=== PATIENT | male | born 2000 | race Caucasian/White ===

== ENCOUNTER 2022-07-27 09:49 | Emergency (ER) | payer BC ==
--- OUTSIDE RECORDS SUMMARY | 2022-07-27 09:52 | XMS REPORT | Continuity of Care Document ---
:2000 Author Organization [facility] t Address Formerly [facility] 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 [facility] Allergies, Adverse Reactions, Alerts This patient has no known allergies or adverse reactions. Social History Smoking Status Start Date Stop Date Source Social History [facility] Medications Ordered Filled Start Stop Current Ordering Indication Dosage Frequency Signature Comments Components Source Medication Medication Date Date Medication? Clinician (SIG) Name Name lisdexamfet 2018-08 Yes 50 mg = 1 M emoria amine 2-02 cap, PO, l dimesylate 17:13: QAM, # 30 He rmann 50 MG Oral 00 cap, 0 Capsule Refill(s), [Vyvanse] Pharmacy: [facility] [address] lisdexamfet Yes 50 mg = 1 M emoria amine 9-20 cap, PO, l dimesylate 16:03: QAM, # 30 He rmann 50 MG Oral 00 cap, 0 Capsule Refill(s), [Vyvanse] Pharmacy: [facility] [address] lisdexamfet Yes 50 mg = 1 M emoria amine 9-09 cap, PO, l dimesylate 15:15: QAM, # 30 He rmann 50 MG Oral 36 cap, 0 Capsule Refill(s), [Vyvanse] given to patient lisdexamfet Yes 50 mg = 1 M emoria amine 3-19 cap, PO, l dimesylate 14:34: QAM, # 30 He rmann 50 MG Oral 31 cap, 0 Capsule Refill(s), [Vyvanse] given to patient lisdexamfet Yes 50 mg = 1 M emoria amine 5-14 cap, PO, l dimesylate 16:36: QAM, # 30 He rmann 50 MG Oral 57 cap, 0 Capsule Refill(s), [Vyvanse] given to patient Immunizations Ordered Immunization Filled Immunization Date Status Commen ts Source Name Name hepatitis A pediatric 2013-04-22 Completed Mem orial vaccine<sup>1</sup> 05:00:00 Yenny nn varicella virus 2013-04-22 Completed [facility] vaccine<sup>2</sup> 05:00:00 Yenny nn meningococcal 2013-04-22 Completed [facility] conjugate 05:00:00 [place] vaccine<sup>4</sup> diphtheria/pertussis, 2013-04-22 Completed Mem orial acel/tetanus 05:00:00 [place] adult<sup>5</sup> diphtheria/pertussis, 2013-04-22 Completed Mem orial acel/tetanus 05:00:00 [place] adult<sup>2</sup> meningococcal 2013-04-22 Completed [facility] conjugate 05:00:00 [place] vaccine<sup>3</sup> varicella virus 2013-04-22 Completed [facility] vaccine<sup>4</sup> 05:00:00 Yenny nn Hx hepatitis A 2006-03-06 Completed [facility] vaccine<sup>6</sup> 05:00:00 Yenny nn measles/mumps/rubella 2005-03-07 Completed Mem orial virus 05:00:00 [place] vaccine<sup>7</sup> Hx poliovirus 2005-03-07 Completed [facility] vaccine-unspecified<s 05:00:00 Her liang up>9</sup> diphtheria/pertussis, 2005-03-07 Completed Mem orial acel/tetanus 05:00:00 [place] ped<sup>13</sup> Hx poliovirus 2005-03-07 Completed [facility] vaccine-unspecified<s 05:00:00 Her liang up>7</sup> diphtheria/pertussis, 2005-03-07 Completed Mem orial acel/tetanus 05:00:00 L[place] ped<sup>11</sup> measles/mumps/rubella 2005-03-07 Completed Mem orial virus 05:00:00 [place] vaccine<sup>16</sup> varicella virus 2002-10-05 Completed [facility] vaccine<sup>3</sup> 06:00:00 Yenny nn varicella virus 2002-10-05 Completed [facility] vaccine<sup>5</sup> 06:00:00 Yenny nn Hx poliovirus 2002-05-04 Completed [facility] vaccine-unspecified<s 05:00:00 Her liang up>8</sup> diphtheria/pertussis, 2002-05-04 Completed Mem orial acel/tetanus 05:00:00 [place] ped<sup>12</sup> Hx hepatitis B 2002-05-04 Completed [facility] vaccine<sup>18</sup> 05:00:00 Herm mary Hx haemophilus b 2002-05-04 Completed [facility] vaccine<sup>21</sup> 05:00:00 Herm mary Hx haemophilus b 2002-05-04 Completed [facility] vaccine<sup>18</sup> 05:00:00 Herm mary Hx poliovirus 2002-05-04 Completed [facility] vaccine-unspecified<s 05:00:00 Her liang up>10</sup> diphtheria/pertussis, 2002-05-04 Completed Mem orial acel/tetanus 05:00:00 [place] ped<sup>14</sup> Hx hepatitis B 2002-05-04 Completed [facility] vaccine<sup>22</sup> 05:00:00 Herm mary measles/mumps/rubella 2001-12-03 Completed Mem orial virus 05:00:00 [place] vaccine<sup>8</sup> measles/mumps/rubella 2001-12-03 Completed Mem orial virus 05:00:00 [place] vaccine<sup>17</sup> Hx haemophilus b 2001-05-26 Completed [facility] vaccine<sup>19</sup> 05:00:00 Herm mary Hx pneumococcal 2001-05-26 Completed [facility] vaccine<sup>25</sup> 05:00:00 Herm mary diphtheria/pertussis, 2001-05-26 Completed Mem orial acel/tetanus 05:00:00 [place] ped<sup>15</sup> diphtheria/pertussis, 2001-05-26 Completed Mem orial acel/tetanus 05:00:00 Lalo ped<sup>13</sup> Hx haemophilus b 2001-05-26 Completed [facility] vaccine<sup>22</sup> 05:00:00 Herm mary Hx haemophilus b 2001-03-31 Completed [facility] vaccine<sup>20</sup> 05:00:00 Herm mary Hx poliovirus 2001-03-31 Completed [facility] vaccine-unspecified<s 05:00:00 Her liang up>11</sup> Hx pneumococcal 2001-03-31 Completed [facility] vaccine<sup>26</sup> 05:00:00 Herm mary Hx poliovirus 2001-03-31 Completed [facility] vaccine-unspecified<s 05:00:00 Her liang up>9</sup> Hx haemophilus b 2001-03-31 Completed [facility] vaccine<sup>23</sup> 05:00:00 Herm mary diphtheria/pertussis, 2001-02-28 Completed Mem orial acel/tetanus 05:00:00 [place] ped<sup>16</sup> diphtheria/pertussis, 2001-02-28 Completed Mem orial acel/tetanus 05:00:00 [place] ped<sup>14</sup> Hx haemophilus b 2001-02-03 Completed [facility] vaccine<sup>21</sup> 05:00:00 Herm mary Hx poliovirus 2001-02-03 Completed [facility] vaccine-unspecified<s 05:00:00 Her liang up>12</sup> Hx pneumococcal 2001-02-03 Completed [facility] vaccine<sup>27</sup> 05:00:00 Herm mary diphtheria/pertussis, 2001-02-03 Completed Mem orial acel/tetanus 05:00:00 [place] ped<sup>17</sup> Hx hepatitis B 2001-02-03 Completed [facility] vaccine<sup>23</sup> 05:00:00 Herm mary Hx poliovirus 2001-02-03 Completed [facility] vaccine-unspecified<s 05:00:00 Her liang up>10</sup> diphtheria/pertussis, 2001-02-03 Completed Mem orial acel/tetanus 05:00:00 [place] ped<sup>15</sup> Hx hepatitis B 2001-02-03 Completed [facility] vaccine<sup>19</sup> 05:00:00 Herm mary Hx haemophilus b 2001-02-03 Completed [facility] vaccine<sup>24</sup> 05:00:00 Herm mary Hx hepatitis B 2000 Completed [facility] vaccine<sup>24</sup> 06:00:00 Herm mary Hx hepatitis B 2000 Completed [facility] vaccine<sup>20</sup> 06:00:00 Herm mary Vital Signs Vital Name Observation Time Observation Value Comments Source Systolic (mm Hg) 2019-07-06 15:40:00 Mckinley rial Lalo Diastolic (mm Hg) 2019-07-06 15:40:00 Mem orial [place] Heart Rate 2019-07-06 15:40:00 [facility] [place] Respitory Rate 2019-07-06 15:40:00 Floresitaori al [place] Weight 2019-07-06 15:40:00 [facility] [place] Systolic (mm Hg) 2019-05-03 14:49:00 Mckinley rial [place] Diastolic (mm Hg) 2019-05-03 14:49:00 Mem orial [place] Heart Rate 2019-05-03 14:49:00 [facility] [place] Height 2019-05-03 14:49:00 179.71 cm [facility] [place] Weight 2019-05-03 14:49:00 [facility] [place] BMI Calculated 2019-05-03 14:49:00 Floresitaori al [place] Weight 2019-01-05 12:53:00 [facility] [place] Heart Rate 2019-01-05 12:53:00 [facility] [place] Systolic (mm Hg) 2019-01-05 12:53:00 Mckinleyalma Garciaann Diastolic (mm Hg) 2019-01-05 12:53:00 Mem orial [place] Weight 2018-01-05 16:22:00 Boni May BMI Calculated 2018-01-05 16:22:00 Aicha Herrera Height 2018-01-05 16:22:00 177.8 cm Boni May Systolic (mm Hg) 2018-01-05 16:22:00 Mckinley Garciaann Diastolic (mm Hg) 2018-01-05 16:22:00 Mem orial [place] Procedures This patient has no known procedures. Encounters Start End Encounter Admission Attending Care Care Encounter Source Date/Time Date/Time Type Type Clinicians Facility Department ID 2021-09-19 2021-09-19 Outpatient [facility] [id number] 04:31:00 04:31:00 [id number] [facility] 2021-04-16 2021-04-16 Outpatient [facility] [address] 04:17:00 04:17:00 HN [id number] [facility] 2019-07-26 2019-07-28 Phone nullFlavo [facility] [id number] Memoria 16:01:19 05:59:59 Message r Pediatrics 03 aviva May 2019-07-26 2019-07-27 Outpatient MG MG [id number] 10:01:19 23:59:59 03 2019-07-06 2019-07-07 [place] [id number] Mem[facility] 15:45:00 05:59:59 r Radiology 10 aviva Garciaann 2019-07-06 2019-07-07 [place] [id number] Memoria 15:45:00 05:59:59 r Pediatrics 09 aviva Garciaann 2019-07-06 2019-07-06 [facility] [id number] 09:45:00 23:59:59 NURSE [facility] Angela MISHRA 2019-07-06 2019-07-06 [facility] Ces[facility] [id number] 09:45:00 23:59:59 Marvin Edmonds 09 2019-07-06 2019-07-06 Outpatient [facility]IE [facility] [id number] Memoria 09:45:00 09:45:00 10 aviva May 2019-07-06 2019-07-06 Outpatient [facility]IE [facility] [id number] Memoria 09:45:00 09:45:00 09 aviva [place] 2019-05-14 2019-05-16 Phone nullFlavo MG [id number] Memoria 15:42:22 04:59:59 Message r Pediatrics 02 aviva Nelson [place] 2019-05-14 2019-05-15 Outpatient [facility] MG [id number] 10:42:22 23:59:59 02 2019-05-03 2019-05-04 Outpatient nullFlavo [facility] [id number] Memoria 16:15:00 04:59:59 r Pediatrics 08 aviva Nelson [place] 2019-05-03 2019-05-03 Outpatient Cesario, MG MG [id number] 11:15:00 23:59:59 Marvin Edmonds 2019-05-03 2019-05-03 Outpatient MHIE MHIE [id number] Memoria 11:15:00 11:15:00 08 aviva [place]alo 2019-02-12 2019-02-12 [place] [id number] [facility] 16:15:00 16:15:00 Pre-Reg r Pediatrics 05 aviva Nelson [place] 2019-02-12 2019-02-12 Outpatient MHIE [facility] [id number] Memoria 11:15:00 11:15:00 05 aviva [place] 2019-02-12 2019-02-12 [facility] [id number] 11:15:00 11:15:00 Marvin Mary 2019-01-05 2019-01-06 [place] [id number] Memoria 13:15:00 04:59:59 r Radiology 07 aviva Nelson [place] 2019-01-05 2019-01-06 Outpatient nullFlavo [facility] [id number] Memoria 13:00:00 04:59:59 r Pediatrics 06 aviva Nelson [place] 2019-01-05 2019-01-05 Outpatient VISIT, MG MG [id number] 08:15:00 23:59:[address] 07 TAD 2019-01-05 2019-01-05 Outpatient Cesario, [facility] [id number] 08:00:00 23:59:59 Marvin Edmonds 2019-01-05 2019-01-05 Outpatient MHIE MHIE [id number] Memoria 08:15:00 08:15:00 07 aviva Lalo 2019-01-05 2019-01-05 Outpatient MHIE [facility]IE [id number] Memoria 08:00:00 08:00:00 06 aviva May 2018-11-10 2018-11-12 Phone nullFlavo [facility] [id number] Memoria 14:23:00 04:59:59 Message r Pediatrics 01 aviva Nelson [place] 2018-11-10 2018-11-11 Outpatient [facility] [id number] 09:23:00 23:59:59 01 2018-01-05 2018-01-06 Outpatient nullFlavo [facility] [id number] Memoria 16:15:00 04:59:59 r Pediatrics 04 aviva Nelson [place] 2018-01-05 2018-01-05 Outpatient [facility]ISCO [facility] [id number] 11:15:00 23:59:59 Marvin Edmonds 2018-01-05 2018-01-05 Outpatient MHIE MHIE [id number] Memoria 11:15:00 11:15:00 04 aviva May 2017-12-31 2017-12-31 Ambulatory nullFlavo [facility] [id number] Memoria 16:00:00 16:00:00 Pre-Reg r Pediatrics 03 aviva Nelson [place] 2017-12-31 2017-12-31 Outpatient MHIE MHIE [id number] Memoria 11:00:00 11:00:00 03 aviva May 2017-12-31 2017-12-31 Outpatient Kevintman, [facility] [id number] 11:00:00 11:00:00 Marvin Edmonds 2017-12-31 2017-12-31 Outpatient Nortman, [facility] [id number] 11:00:00 11:00:00 Marvin Edmonds 2016 2016 Outpatient MHIE MHIE [id number] Memoria 11:30:00 11:30:00 02 aviva May Results This patient has no known results.
--- NOTE | 2022-07-27 10:49 | RAD REPORT ---
EXAM DESCRIPTION: Fabi Single View07/27/2022 10:30 am CLINICAL HISTORY: Chest pain COMPARISON: none FINDINGS: The lungs appear clear of acute infiltrate. The heart is normal size IMPRESSION: No acute abnormalities displayed
[2022-07-27 11:15] LABS: SARS-COV-2 RT PCR NEGATIVE (NEGATIVE)
--- NOTE | 2022-07-27 11:44 | ER ---
Nurse's Notes [facility] Name: Avery Alvarenga Age: 21 yrs Sex: Male : 2000 Arrival Date: 07/27/2022 Time: 09:52 Bed DIS1 Private MD: Diagnosis: Influenza Presentation: 07/27 10:05 Chief complaint: Patient states: Cough, congestion, runny nose, body aches x1 days. iw Coronavirus screen: Vaccine status: Patient reports being unvaccinated. Client indicates they have traveled out of the [place] in the last 14 days. Client traveled to: [place], [place], [facility]. Ebola Screen: Patient negative for fever greater than or equal to 101.5 degrees Fahrenheit, and additional compatible Ebola Virus Disease symptoms Patient denies exposure to infectious person. Patient denies travel to an Ebola-affected area in the 21 days before illness onset. Initial Sepsis Screen: Does the patient meet any 2 criteria? No. Patient's initial sepsis screen is negative. Does the patient have a suspected source of infection? No. Patient's initial sepsis screen is negative. Risk Assessment: Do you want to hurt yourself or someone else? Patient reports no desire to harm self or others. Onset of symptoms was July 26, 2022 at 17:00. 10:05 Method Of Arrival: Ambulatory iw 10:05 Acuity: MANSOOR 4 iw Triage Assessment: 10:08 General: Appears in no apparent distress. Behavior is calm, cooperative. Pain: iw Complains of pain in head and chest Pain does not radiate. Pain currently is 5 out of 10 on a pain scale. Quality of pain is described as pressure. Cardiovascular: Reports chest pain. Historical: - Allergies: 10:08 No Known Allergies; iw - Home Meds: 10:08 None [Active]; iw - PMHx: 10:08 None; iw - PSHx: 10:08 None; iw - Immunization history:: Adult Immunizations up to date, Client reports having NOT received the Covid vaccine. Last tetanus immunization: up to date. - Social history:: Smoking status: Patient/guardian denies using tobacco, Stopped _ months ago .5. Vital Signs: 10:05 BP 132 / 88; Pulse 98; Resp 20; Temp 98.6; Pulse Ox 100% ; Weight 93.89 kg; Height 6 iw ft. 1 in. (185.42 cm); Pain 5/10; 10:05 Body Mass Index 27.31 (93.89 kg, 185.42 cm) iw ED Course: 09:52 Patient arrived in ED. mr 09:53 Alcon Serrano PA is PHCP. [facility] 09:53 Akash Roberts MD is Attending Physician. jmm 10:08 Triage completed. iw 10:08 Arm band placed on right wrist. iw 10:10 COVID-19/FLU A+B Sent. iw 10:32 Chest Single View XRAY In Process Unspecified. EDMS 12:24 Ashlee Keating, RN is Primary Nurse. iw Administered Medications: 12:24 Drug: Zofran (Ondansetron) 4 mg Route: PO; iw Outcome: 11:43 Discharge ordered by . m 12:33 Patient left the ED. iw Signatures: Dispatcher [employer] EDMS Alcon Serrano PA PA jmm Rivera, Mary mr Ashlee Keating, RN RN iw
--- NOTE | 2022-07-27 11:44 | EDPHYS ---
Physician Documentation [facility] Name: Avery Alvarenga Age: 21 yrs Sex: Male : 2000 Arrival Date: 07/27/2022 Time: 09:52 Bed DIS1 Private MD: ED Physician Akash Roberts HPI: 07/27 09:54 This 21 yrs old Male presents to ER via Ambulatory with complaints of body aches, Chest jmm Pressure. 09:54 Onset: The symptoms/episode began/occurred gradually. Associated signs and symptoms: jmm Pertinent positives: congestion, cough. Modifying factors: The patient symptoms are alleviated by nothing, the patient symptoms are aggravated by nothing. This is a 21 year old male with no chronic medical conditions that presents to the ED with complaints of cough, congestion, body aches beginning last night. . Historical: - Allergies: 10:08 No Known Allergies; iw - Home Meds: 10:08 None [Active]; iw - PMHx: 10:08 None; iw - PSHx: 10:08 None; iw - Immunization history:: Adult Immunizations up to date, Client reports having NOT received the Covid vaccine. Last tetanus immunization: up to date. - Social history:: Smoking status: Patient/guardian denies using tobacco, Stopped _ months ago .5. ROS: 09:54 Constitutional: Positive for body aches, chills. jmm 09:54 ENT: Positive for sinus congestion. 09:54 Respiratory: Positive for cough. 09:54 All other systems are negative. Exam: 09:54 Constitutional: This is a well developed, well nourished patient who is awake, alert, jmm and in no acute distress. Head/Face: atraumatic. Eyes: EOMI, no conjunctival erythema appreciated ENT: Moist Mucus Membranes Neck: Trachea midline, Supple Chest/axilla: Normal chest wall appearance and motion. Cardiovascular: Regular rate and rhythm. No edema appreciated Respiratory: Normal respirations, no respiratory distress appreciated Abdomen/GI: Non distended Back: Normal ROM Skin: General appearance color normal MS/ Extremity: Moves all extremities, no obvious deformities appreciated, no edema noted to the lower extremities Neuro: Awake and alert Psych: Behavior is normal, Mood is normal, Patient is cooperative and pleasant Vital Signs: 10:05 BP 132 / 88; Pulse 98; Resp 20; Temp 98.6; Pulse Ox 100% ; Weight 93.89 kg; Height 6 iw ft. 1 in. (185.42 cm); Pain 5/10; 10:05 Body Mass Index 27.31 (93.89 kg, 185.42 cm) MDM: 10:04 Patient medically screened. [facility] 11:42 Data reviewed: vital signs, nurses notes. Counseling: I had a detailed discussion with [facility] the patient and/or guardian regarding: the historical points, exam findings, and any diagnostic results supporting the discharge/admit diagnosis, the need for outpatient follow up, to return to the emergency department if symptoms worsen or persist or if there are any questions or concerns that arise at home. 07/27 09:53 Order name: COVID-19/FLU A+B; Complete Time: 11:42 [facility] 07/27 09:53 Order name: Chest Single View XRAY; Complete Time: 10:50 [facility] Administered Medications: 12:24 Drug: Zofran (Ondansetron) 4 mg Route: PO; Disposition: 07/28 08:06 Co-signature as Attending Physician, Akash Roberts MD I agree with the assessment and srikanth plan of care. Disposition Summary: 07/27/22 11:43 Discharge Ordered Location: Home [facility] Condition: Stable [facility] Diagnosis - Influenza [facility] Followup: [facility] - With: Private Physician - When: 2 - 3 days - Reason: Recheck today's complaints, Continuance of care, Re-evaluation by your physician Discharge Instructions: - Discharge Summary Sheet [facility] - Influenza, Adult [facility] Forms: - Medication Reconciliation Form [facility] - Thank You Letter [facility] - Antibiotic Education [facility] - Prescription Opioid Use [facility] - Work release form Prescriptions: - ondansetron 4 mg Oral tablet,disintegrating - place 1 tablet by TRANSLINGUAL route every 4-6 hours; 20 tablet; Refills: 0, [facility] Product Selection Permitted Signatures: Dispatcher [employer] Akash Cochran MD MD cha Mickail, Joel, PA PA jmm Williams, Irene, RN RN iw
[2022-07-27] MEDS ORDERED: ONDANSETRON 4 MG (ODT) TAB ONE (12:03)
[2022-07-27 12:37] VITALS: BP 132/88; TEMP 98.6; O2SAT 100
== END 2022-07-27 12:33 | disposition home or self-care (01) ==
LOC: ER 09:49
DX: J11.1 Influenza due to unidentified influenza virus with other respiratory manifestations (principal); Z20.822 Contact with and (suspected) exposure to COVID-19
CPT/HCPCS: 0240U; 71045; 99283; Q0162

== ENCOUNTER 2022-11-09 23:37 | Emergency (ER) | payer BC ==
--- OUTSIDE RECORDS SUMMARY | 2022-11-09 23:50 | XMS REPORT | Continuity of Care Document ---
:2000 Author Organization [facility] t Address [address] [place] [address] Care Team Providers Name Role Phone Tomek_Dell Attending Clinician Unavailable Shield Attending Clinician Unavailable TACHO Attending Clinician Unavailable VISIT, NURSE [facility] XRAY Attending Clinician Unavailable Marvin Nassar Attending Clinician Tomek_Dell Admitting Clinician Unavailable Shield Admitting Clinician Unavailable TACHO Admitting Clinician Unavailable Payers Payer Name Policy Type Policy Number Effective Date Expiration Date S di [facility]: 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 [facility] Allergies, Adverse Reactions, Alerts Allergy Allergy Status Severity Reaction(s) Onset Inactive Treating Comm ents Source Name Type Date Date Clinician No Known No Known Active Mem[facility] a Medicati Medicati l on on [place] Allergie Allergxavi s s Social History Smoking Status Start Date Stop Date Source Social History [facility] Medications Ordered Filled Start Stop Current Ordering Indication Dosage Frequency Signature Comments Components Source Medication Medication Date Date Medication? Clinician (SIG) Name Name huey 2018-08 Yes 50 mg = 1 M emoria amine 2-02 cap, PO, l dimesylate 17:13: QAM, # 30 He rmann 50 MG Oral 00 cap, 0 Capsule Refill(s), [Vyvanse] Pharmacy: [facility] lisdexamfet 2018-08 Yes 50 mg = 1 M emoria amine 2-02 cap, PO, l dimesylate 17:13: QAM, # 30 He rmann 50 MG Oral 00 cap, 0 Capsule Refill(s), [Vyvanse] Pharmacy: [facility] lisdexamfet Yes 50 mg = 1 M emoria amine 9-20 cap, PO, l dimesylate 16:03: QAM, # 30 He rmann 50 MG Oral 00 cap, 0 Capsule Refill(s), [Vyvanse] Pharmacy: [facility] lisdexamfet Yes 50 mg = 1 M emoria amine 9-20 cap, PO, l dimesylate 16:03: QAM, # 30 He rmann 50 MG Oral 00 cap, 0 Capsule Refill(s), [Vyvanse] Pharmacy: [facility] lisdexamfet Yes 50 mg [...] Capsule Refill(s), [Vyvanse] given to patient lisdexamfet 0 Yes 50 mg = 1 M emoria amine 3-19 cap, PO, l dimesylate 14:34: QAM, # 30 He rmann 50 MG Oral 31 cap, 0 Capsule Refill(s), [Vyvanse] given to patient lisdexamfet 20180 Yes 50 mg = 1 M emoria amine 5-14 cap, PO, l dimesylate 16:36: QAM, # 30 He rmann 50 MG Oral 57 cap, 0 Capsule Refill(s), [Vyvanse] given to patient lisdexamfet [id number] Yes 50 mg = 1 M emoria amine 5-14 cap, PO, l dimesylate 16:36: QAM, # 30 He rmann 50 MG Oral 57 cap, 0 Capsule Refill(s), [Vyvanse] given to patient fluticasone fluticasone No fluticason [place] propionate propionate e da 50 50 propionate Medical mcg/actuati mcg/actuati 50 G roup on nasal on nasal mcg/actuat spray,suspe spray,suspe ion nasal nsion nsion spray,susp ension levocetiriz levocetiriz No levocetiri [place] ine 5 mg ine 5 mg zine 5 mg da tablet tablet tablet [facility] Vyvanse 50 Vyvanse 50 No 1capsul Q1D Vyvanse 50 [place] mg capsule mg capsule e(s) mg capsule da Take 1 Take 1 Take 1 Medical capsule capsule capsule Group every day every day every day by oral by oral by oral route with route with route with meals for meals for meals for 30 days. 30 days. 30 days. Immunizations Ordered Immunization Filled Immunization Date Status Commen ts Source Name Name hepatitis A 2013-04-22 Completed [facility] pediatric 05:00:00 [place] vaccine<sup>1</sup> varicella virus 2013-04-22 Completed [facility] vaccine<sup>2</sup> 05:00:00 Yenny nn meningococcal 2013-04-22 Completed [facility] conjugate 05:00:00 [place] vaccine<sup>4</sup> diphtheria/pertussis 2013-04-22 Completed [facility] , acel/tetanus 05:00:00 [place] adult<sup>5</sup> diphtheria/pertussis 2013-04-22 Completed [facility] , acel/tetanus 05:00:00 [place] adult<sup>2</sup> meningococcal 2013-04-22 Completed [facility] conjugate 05:00:00 [place] vaccine<sup>3</sup> varicella virus 2013-04-22 Completed [facility] vaccine<sup>4</sup> 05:00:00 Yenny nn hepatitis A 2013-04-22 Completed [facility] pediatric 05:00:00 [place] vaccine<sup>1</sup> varicella virus 2013-04-22 Completed [facility] vaccine<sup>2</sup> 05:00:00 Yenny nn meningococcal 2013-04-22 Completed [facility] conjugate 05:00:00 [place] vaccine<sup>4</sup> diphtheria/pertussis 2013-04-22 Completed [facility] , acel/tetanus 05:00:00 [place] adult<sup>5</sup> diphtheria/pertussis 2013-04-22 Completed [facility] , acel/tetanus 05:00:00 [place] adult<sup>2</sup> meningococcal 2013-04-22 Completed [facility] conjugate 05:00:00 [place] vaccine<sup>3</sup> varicella virus 2013-04-22 Completed [facility] vaccine<sup>4</sup> 05:00:00 Yenny nn meningococcal MCV4P meningococcal MCV4P 2013-04-22 Completed [place] - ML - ML 00:00:00 [facility] Group Hep A, ped/adol, 2 Hep A, ped/adol, 2 2013-04-22 Completed [place] dose - ML dose - ML 00:00:00 [facility] varicella - ML varicella - ML 2013-04-22 Completed [place] 00:00:00 [facility] Tdap - ML Tdap - ML 2013-04-22 Completed [place] 00:00:00 [facility] Hx hepatitis A 2006-03-06 Completed [facility] vaccine<sup>6</sup> 05:00:00 Yenny lag[place] Hx hepatitis A 2006-03-06 Completed [facility] vaccine<sup>6</sup> 05:00:00 Yenny nn Hep A, ped/adol, 2 Hep A, ped/adol, 2 2006-03-06 Completed [place] dose - ML dose - ML 00:00:00 [facility] measles/mumps/rubell 2005-03-07 Completed [facility] a virus 05:00:00 [place] vaccine<sup>7</sup> Hx poliovirus 2005-03-07 Completed [facility] vaccine-unspecified< 05:00:00 Herm mary sup>9</sup> diphtheria/pertussis 2005-03-07 Completed [facility] , acel/tetanus 05:00:00 [place] ped<sup>13</sup> Hx poliovirus 2005-03-07 Completed [facility] vaccine-unspecified< 05:00:00 Herm mary sup>7</sup> diphtheria/pertussis 2005-03-07 Completed [facility] , acel/tetanus 05:00:00 [place] ped<sup>11</sup> measles/mumps/rubell 2005-03-07 Completed [facility] a virus 05:00:00 [place] vaccine<sup>16</sup> measles/mumps/rubell 2005-03-07 Completed [facility] a virus 05:00:00 [place] vaccine<sup>7</sup> Hx poliovirus 2005-03-07 Completed [facility] vaccine-unspecified< 05:00:00 Herm mary sup>9</sup> diphtheria/pertussis 2005-03-07 Completed [facility] , acel/tetanus 05:00:00 [place] ped<sup>13</sup> Hx poliovirus 2005-03-07 Completed [facility] vaccine-unspecified< 05:00:00 Herm mary sup>7</sup> diphtheria/pertussis 2005-03-07 Completed [facility] , acel/tetanus 05:00:00 [place] ped<sup>11</sup> measles/mumps/rubell 2005-03-07 Completed [facility] a virus 05:00:00 [place] vaccine<sup>16</sup> DTaP, unspecified DTaP, unspecified 2005-03-07 Completed [place] formulation - ML formulation - ML 00:00:00 Pa dical Group MMR - ML MMR - ML 2005-03-07 Completed [place] 00:00:00 [facility] Group IPV - ML IPV - ML 2005-03-07 Completed [place] 00:00:00 [facility] Group varicella virus 2002-10-05 Completed [facility] vaccine<sup>3</sup> 06:00:00 Yenny nn varicella virus 2002-10-05 Completed [facility] vaccine<sup>5</sup> 06:00:00 Yenny nn varicella virus 2002-10-05 Completed [facility] vaccine<sup>3</sup> 06:00:00 Yenny nn varicella virus 2002-10-05 Completed [facility] vaccine<sup>5</sup> 06:00:00 Yenny nn varicella - ML varicella - ML 2002-10-05 Completed [place] 00:00:00 [facility] Hx haemophilus b 2002-05-04 Completed [facility] vaccine<sup>18</sup> 05:00:00 Herm mary Hx poliovirus 2002-05-04 Completed [facility] vaccine-unspecified< 05:00:00 Herm mary sup>10</sup> diphtheria/pertussis 2002-05-04 Completed [facility] , acel/tetanus 05:00:00 [place] ped<sup>14</sup> Hx hepatitis B 2002-05-04 Completed [facility] vaccine<sup>22</sup> 05:00:00 Herm mary Hx poliovirus 2002-05-04 Completed [facility] vaccine-unspecified< 05:00:00 Herm mary sup>8</sup> diphtheria/pertussis 2002-05-04 Completed [facility] , acel/tetanus 05:00:00 [place] ped<sup>12</sup> Hx hepatitis B 2002-05-04 Completed [facility] vaccine<sup>18</sup> 05:00:00 Herm mary Hx haemophilus b 2002-05-04 Completed [facility] vaccine<sup>21</sup> 05:00:00 Herm mary Hx haemophilus b 2002-05-04 Completed [facility] vaccine<sup>18</sup> 05:00:00 Herm mary Hx poliovirus 2002-05-04 Completed [facility] vaccine-unspecified< 05:00:00 Herm mary sup>10</sup> diphtheria/pertussis 2002-05-04 Completed [facility] , acel/tetanus 05:00:00 [place] ped<sup>14</sup> Hx hepatitis B 2002-05-04 Completed [facility] vaccine<sup>22</sup> 05:00:00 Herm mary Hx poliovirus 2002-05-04 Completed [facility] vaccine-unspecified< 05:00:00 Herm mary sup>8</sup> diphtheria/pertussis 2002-05-04 Completed [facility] , acel/tetanus 05:00:00 [place] ped<sup>12</sup> Hx hepatitis B 2002-05-04 Completed [facility] vaccine<sup>18</sup> 05:00:00 Herm mary Hx haemophilus b 2002-05-04 Completed [facility] vaccine<sup>21</sup> 05:00:00 Herm mary DTaP, unspecified DTaP, unspecified 2002-05-04 Completed [place] formulation - ML formulation - ML 00:00:00 Me dical Group Hib (PRP-T) - ML Hib (PRP-T) - ML 2002-05-04 Completed [place] 00:00:[facility] Hep B, adolescent or Hep B, adolescent or 2002-05-04 Completed [place] pediatric - ML pediatric - ML 00:00:00 Medica l Group IPV - ML IPV - ML 2002-05-04 Completed [place] 00:00:00 [facility] measles/mumps/rubell 2001-12-03 Completed [facility] a virus 05:00:00 [place] vaccine<sup>8</sup> measles/mumps/rubell 2001-12-03 Completed [facility] a virus 05:00:00 [place] vaccine<sup>17</sup> measles/mumps/rubell 2001-12-03 Completed [facility] a virus 05:00:00 [place] vaccine<sup>8</sup> measles/mumps/rubell 2001-12-03 Completed [facility] a virus 05:00:00 [place] vaccine<sup>17</sup> MMR - ML MMR - ML 2001-12-03 Completed [place] 00:00:00 [facility] Hx haemophilus b 2001-05-26 Completed [facility] vaccine<sup>19</sup> 05:00:00 Herm mary Hx pneumococcal 2001-05-26 Completed [facility] vaccine<sup>25</sup> 05:00:00 Herm mary diphtheria/pertussis 2001-05-26 Completed [facility] , acel/tetanus 05:00:00 [place] ped<sup>15</sup> diphtheria/pertussis 2001-05-26 Completed [facility] , acel/tetanus 05:00:00 [place] ped<sup>13</sup> Hx haemophilus b 2001-05-26 Completed [facility] vaccine<sup>22</sup> 05:00:00 Herm mary Hx haemophilus b 2001-05-26 Completed [facility] vaccine<sup>19</sup> 05:00:00 Herm mary Hx pneumococcal 2001-05-26 Completed [facility] vaccine<sup>25</sup> 05:00:00 Herm mary diphtheria/pertussis 2001-05-26 Completed [facility] , acel/tetanus 05:00:00 [place] ped<sup>15</sup> diphtheria/pertussis 2001-05-26 Completed [facility] , acel/tetanus 05:00:00 [place] ped<sup>13</sup> Hx haemophilus b 2001-05-26 Completed [facility] vaccine<sup>22</sup> 05:00:00 Herm mary DTaP, unspecified DTaP, unspecified 2001-05-26 Completed [place] formulation - ML formulation - ML 00:00:00 Pa dical Group Hib (PRP-T) - ML Hib (PRP-T) - ML 2001-05-26 Completed [place] 00:00:00 [facility] pneumococcal pneumococcal 2001-05-26 Completed [place] conjugate PCV 7 - ML conjugate PCV 7 - ML 00:00:00 [facility] Hx haemophilus b 2001-03-31 Completed [facility] vaccine<sup>20</sup> 05:00:00 Herm mary Hx poliovirus 2001-03-31 Completed [facility] vaccine-unspecified< 05:00:00 Herm mary sup>11</sup> Hx pneumococcal 2001-03-31 Completed [facility] vaccine<sup>26</sup> 05:00:00 Herm mary Hx poliovirus 2001-03-31 Completed [facility] vaccine-unspecified< 05:00:00 Herm mary sup>9</sup> Hx haemophilus b 2001-03-31 Completed [facility] vaccine<sup>23</sup> 05:00:00 Herm mary Hx haemophilus b 2001-03-31 Completed [facility] vaccine<sup>20</sup> 05:00:00 Herm mary Hx poliovirus 2001-03-31 Completed [facility] vaccine-unspecified< 05:00:00 Herm mary sup>11</sup> Hx pneumococcal 2001-03-31 Completed [facility] vaccine<sup>26</sup> 05:00:00 Herm mary Hx poliovirus 2001-03-31 Completed [facility] vaccine-unspecified< 05:00:00 Herm mary sup>9</sup> Hx haemophilus b 2001-03-31 Completed [facility] vaccine<sup>23</sup> 05:00:00 Herm mary Hib (PRP-T) - ML Hib (PRP-T) - ML 2001-03-31 Completed [place] 00:00:00 [facility] pneumococcal pneumococcal 2001-03-31 Completed [place] conjugate PCV 7 - ML conjugate PCV 7 - ML 00:00:00 [facility] Group IPV - ML IPV - ML 2001-03-31 Completed [place] 00:00:00 [facility] diphtheria/pertussis 2001-02-28 Completed [facility] , acel/tetanus 05:00:00 [place] ped<sup>16</sup> diphtheria/pertussis 2001-02-28 Completed [facility] , acel/tetanus 05:00:00 [place] ped<sup>14</sup> diphtheria/pertussis 2001-02-28 Completed [facility] , acel/tetanus 05:00:00 [place] ped<sup>16</sup> diphtheria/pertussis 2001-02-28 Completed [facility] , acel/tetanus 05:00:00 [place] ped<sup>14</sup> DTaP, unspecified DTaP, unspecified 2001-02-28 Completed [place] formulation - ML formulation - ML 00:00:00 Pa dical Group Hx haemophilus b 2001-02-03 Completed [facility] vaccine<sup>21</sup> 05:00:00 Herm mray Hx poliovirus 2001-02-03 Completed [facility] vaccine-unspecified< 05:00:00 Herm mray sup>12</sup> Hx pneumococcal 2001-02-03 Completed [facility] vaccine<sup>27</sup> 05:00:00 Herm mary diphtheria/pertussis 2001-02-03 Completed [facility] , acel/tetanus 05:00:00 [place] ped<sup>17</sup> Hx hepatitis B 2001-02-03 Completed [facility] vaccine<sup>23</sup> 05:00:00 Herm mary Hx poliovirus 2001-02-03 Completed [facility] vaccine-unspecified< 05:00:00 Herm mary sup>10</sup> diphtheria/pertussis 2001-02-03 Completed [facility] , acel/tetanus 05:00:00 [place] ped<sup>15</sup> Hx hepatitis B 2001-02-03 Completed [facility] vaccine<sup>19</sup> 05:00:00 Herm mary Hx haemophilus b 2001-02-03 Completed [facility] vaccine<sup>24</sup> 05:00:00 Herm mary Hx haemophilus b 2001-02-03 Completed [facility] vaccine<sup>21</sup> 05:00:00 Herm mary Hx poliovirus 2001-02-03 Completed [facility] vaccine-unspecified< 05:00:00 Herm mary sup>12</sup> Hx pneumococcal 2001-02-03 Completed [facility] vaccine<sup>27</sup> 05:00:00 Herm mary diphtheria/pertussis 2001-02-03 Completed [facility] , acel/tetanus 05:00:00 [place] ped<sup>17</sup> Hx hepatitis B 2001-02-03 Completed [facility] vaccine<sup>23</sup> 05:00:00 Herm mary Hx poliovirus 2001-02-03 Completed [facility] vaccine-unspecified< 05:00:00 Herm mary sup>10</sup> diphtheria/pertussis 2001-02-03 Completed [facility] , acel/tetanus 05:00:00 [place] ped<sup>15</sup> Hx hepatitis B 2001-02-03 Completed [facility] vaccine<sup>19</sup> 05:00:00 Herm mary Hx haemophilus b 2001-02-03 Completed [facility] vaccine<sup>24</sup> 05:00:00 Radha hernandez DTaP, unspecified DTaP, unspecified 2001-02-03 Completed [place] formulation - ML formulation - ML 00:00:00 Pa dical Group Hib (PRP-T) - ML Hib (PRP-T) - ML 2001-02-03 Completed [place] 00:00:00 [facility] Hep B, adolescent or Hep B, adolescent or 2001-02-03 Completed [place] pediatric - ML pediatric - ML 00:00:00 Medica l Group pneumococcal pneumococcal 2001-02-03 Completed [place] conjugate PCV 7 - ML conjugate PCV 7 - ML 00:00:00 [facility] Group IPV - ML IPV - ML 2001-02-03 Completed [place] 00:00:00 [facility] Group Hx hepatitis B 2000 Completed [facility] vaccine<sup>24</sup> 06:00:00 Herm mary Hx hepatitis B 2000 Completed [facility] vaccine<sup>20</sup> 06:00:00 Herm mary Hx hepatitis B 2000 Completed [facility] vaccine<sup>24</sup> 06:00:00 Herm mary Hx hepatitis B 2000 Completed [facility] vaccine<sup>20</sup> 06:00:00 Herm mary Hep B, adolescent or Hep B, adolescent or 2000 Completed [place] pediatric - ML pediatric - ML 00:00:00 [facility] l [facility] Vital Signs Vital Name Observation Time Observation Value Comments Source BP Diastolic 2022-10-17 00:00:00 73 mm[Hg] [facility] BP Systolic 2022-10-17 00:00:00 111 mm[Hg] [facility] Body Weight 2022-10-17 00:00:00 3332 [oz_av] [facility] Systolic (mm Hg) 2019-07-06 15:40:00 [facility] [place] Diastolic (mm Hg) 2019-07-06 15:40:00 [facility] [place] Heart Rate 2019-07-06 15:40:00 [facility] [place] Respitory Rate 2019-07-06 15:40:00 [facility] [place] Weight 2019-07-06 15:40:00 [facility] [place] Systolic (mm Hg) 2019-05-03 14:49:00 [facility] [place] Diastolic (mm Hg) 2019-05-03 14:49:00 Mem [facility] [place] Heart Rate 2019-05-03 14:49:00 [facility] [place] Height 2019-05-03 14:49:00 179.71 cm [facility] [place] Weight 2019-05-03 14:49:00 [facility] [place] BMI Calculated 2019-05-03 14:49:00 [facility] [place] Weight 2019-01-05 12:53:00 [facility] [place] Heart Rate 2019-01-05 12:53:00 [facility] [place] Systolic (mm Hg) 2019-01-05 12:53:00 [facility] [place] Diastolic (mm Hg) 2019-01-05 12:53:00 [facility] [place] Weight 2018-01-05 16:22:00 [facility] [place] BMI Calculated 2018-01-05 16:22:00 Mem[facility] al [place] Height 2018-01-05 16:22:00 177.8 cm Boni [place] Systolic (mm Hg) 2018-01-05 16:22:00 [facility] [place] Diastolic (mm Hg) 2018-01-05 16:22:00 Mem [facility] [place] Procedures This patient has no known procedures. Plan of Care Planned Activity Planned Date Details Comments Source Future Appointment 2023-02-14 Bhavna Frost Castroyousuf lorenzana [facility] 08:15:00 [facility] [address], [place] [address] Encounters Start End Encounter Admission Attending Care Care Encounter Source Date/Time Date/Time Type Type Clinicians Facility Department ID 2022-10-30 2022-10-30 Outpatient Tomek_T [facility] [id number] [place] 00:00:00 00:00:00 [facility]308 [facility] 2022-10-17 2022-10-17 Outpatient Tomek_T [facility] [id number] [place] 00:00:00 00:00:00 0223 [facility] 2022-10-17 2022-10-17 Lorna G [place] - [id number] [facility] 00:00:00 00:00:00 Rush Bahena MD: [facility] [address], [place] [address] , Ph. 2022-10-16 2022-10-16 Outpatient Shield [facility] [id number] [place] 00:00:00 00:00:00 0222 [facility] 2022-09-09 2022-09-09 Outpatient Shield [facility] [id number] [place] 00:00:00 00:00:00 0116 [facility] 2021-09-19 2021-09-19 Outpatient [facility] [id number] [place] 04:31:00 04:31:00 HN [id number] [facility] 2021-04-16 2021-04-16 Outpatient [facility] [id number] [place] 04:17:00 04:17:00 HN [id number] [facility] 2019-07-26 2019-07-28 Phone nullFlavo [facility] [id number] [facility] 16:01:19 05:59:59 Message r Pediatrics 03 aviva May 2019-07-26 2019-07-28 Phone nullFlavo [facility] [id number] [facility] 16:01:19 05:59:59 Message r Pediatrics 03 aviva May 2019-07-26 2019-07-27 Outpatient [facility] MG [id number] 10:01:19 23:59:59 03 2019-07-06 2019-07-07 [place] [id number] [facility] 15:45:00 05:59:59 r Radiology 10 aviva May 2019-07-06 2019-07-07 [place] [id number] [facility] 15:45:00 05:59:59 r Pediatrics 09 aviva May 2019-07-06 2019-07-07 [place] [id number] [facility] 15:45:00 05:59:59 r Radiology 10 aviva May 2019-07-06 2019-07-07 [place] [id number] [facility] 15:45:00 05:59:59 r Pediatrics 09 aviva May 2019-07-06 2019-07-06 Outpatient VISIT, MG MG [id number] 09:45:00 23:59:59 NURSE [facility] 10 CRISTOPHER 2019-07-06 2019-07-06 Outpatient [place], [place] [id number] 09:45:00 23:59:59 Marvin Mary 2019-07-06 2019-07-06 Outpatient [facility] [id number] [facility] 09:45:00 09:45:00 10 aviva May 2019-07-06 2019-07-06 Outpatient [facility] [id number] [facility] 09:45:00 09:45:00 09 aviva May 2019-05-14 2019-05-16 Phone nullFlavo MG [id number] [facility] 15:42:22 04:59:59 Message r Pediatrics 02 aviva May 2019-05-14 2019-05-16 Phone nullFlavo MG [id number] [facility] 15:42:22 04:59:59 Message r Pediatrics 02 aviva aMy 2019-05-14 2019-05-15 Outpatient MG MG [id number] 10:42:22 23:59:59 02 2019-05-03 2019-05-04 [place] [id number] [facility] 16:15:00 04:59:59 r Pediatrics 08 aviva Garciaann 2019-05-03 2019-05-04 [place] [id number] [facility] 16:15:00 04:59:59 r Pediatrics 08 aviva Nelson [place] 2019-05-03 2019-05-03 [id number] 11:15:00 23:59:59 Marvin Mary 2019-05-03 2019-05-03 Outpatient MHIE IE [id number] [facility] 11:15:00 11:15:00 aviva May 2019-02-12 2019-02-12 [place] [id number] [facility] 16:15:00 16:15:00 Pre-Reg r Pediatrics 05 aviva Nelson [place] 2019-02-12 2019-02-12 [place] [id number] [facility] 16:15:00 16:15:00 Pre-Reg r Pediatrics 05 aviva Garciaann 2019-02-12 2019-02-12 Outpatient MHIE IE [id number] [facility] 11:15:00 11:15:00 aviva GarciaLalo 2019-02-12 2019-02-12 [facility] [id number] 11:15:00 11:15:00 Marvin Hernandez 2019-01-05 2019-01-06 [place] [id number] [facility] 13:15:00 04:59:59 r Radiology 07 Omar [place] 2019-01-05 2019-01-06 [place] [id number] [facility] 13:15:00 04:59:59 r Radiology 07 aviva Nelson [place] 2019-01-05 2019-01-06 [place] [id number] [facility] 13:00:00 04:59:59 r Pediatrics 06 Omar [place] 2019-01-05 2019-01-06 [place] [id number] [facility] 13:00:00 04:59:59 r Pediatrics 06 aviva May 2019-01-05 2019-01-05 Outpatient VISIT, MG MG [id number] 08:15:00 23:59:59 NURSE STVIOLETA MISHRA 2019-01-05 2019-01-05 Outpatient Cesario, MG [place] [id number] 08:00:00 23:59:59 Marvin Hernandez 2019-01-05 2019-01-05 Outpatient [facility]IE [facility] [id number] [facility] 08:15:00 08:15:00 07 aviva May 2019-01-05 2019-01-05 Outpatient [facility] [id number] [facility] 08:00:00 08:00:00 06 aviva May 2018-11-10 2018-11-12 Phone nullFlavo MG [id number] [facility] 14:23:00 04:59:59 Message r Pediatrics 01 aviva May 2018-11-10 2018-11-12 Phone nullFlavo MG [id number] [facility] 14:23:00 04:59:59 Message r Pediatrics 01 aviva May 2018-11-10 2018-11-11 Outpatient [facility] MG [id number] 09:23:00 23:59:59 01 2018-01-05 2018-01-06 [place] [id number] [facility] 16:15:00 04:59:59 r Pediatrics 04 aviva May 2018-01-05 2018-01-06 [place] [id number] [facility] 16:15:00 04:59:59 r Pediatrics 04 aviva May 2018-01-05 2018-01-05 Outpatient Cesario, [place] [id number] 11:15:00 23:59:59 Marvin Hernandez 04 2018-01-05 2018-01-05 Outpatient [facility] [id number] [facility] 11:15:00 11:15:00 04 aviva [place] 2017-12-31 2017-12-31 [place] [id number] [facility] 16:00:00 16:00:00 Pre-Reg r Pediatrics 03 aviva Garciaann 2017-12-31 2017-12-31 Ambulatory nullFlavo [facility] [id number] [facility] 16:00:00 16:00:00 Pre-Reg r Pediatrics 03 l [place] 2017-12-31 2017-12-31 Outpatient MHIE IE [id number] [facility] 11:00:00 11:00:00 03 aviva May 2017-12-31 2017-12-31 [facility] [id number] 11:00:00 11:00:00 Marvin Hernandez 2017-12-31 2017-12-31 [facility] [id number] 11:00:00 11:00:00 Marvin Hernandez 2016 2016 Outpatient IE IE [id number] [facility] 11:30:00 11:30:00 02 aviva May 2016 2016 Outpatient IE IE [id number] [facility] 11:30:00 11:30:00 02 aviva May Results This patient has no known results.
[2022-11-10 01:09] LABS: Absolute Lymphocytes (CBC) 1.9 K/uL (0.7-4.9); Hematocrit 43.5 % (39.6-49.0); MCV 84.2 fL (80-100); MPV 7.1 fL (7.6-11.3); RBC Red Blood Cell Count 5.17 M/uL (4.33-5.43)
[2022-11-10 01:24] LABS: Potassium 3.9 mEq/L (3.5-5.1)
[2022-11-10] MEDS ORDERED: BUPIVACAINE 0.5% PF 10 ML VIAL ONE (01:27)
[2022-11-10] MEDS ORDERED: LIDOCAINE 1% 20 ML MDV ONE (01:27)
[2022-11-10] MEDS ORDERED: LIDOCAINE 1% MPF 5 ML VIAL ONE (01:28)
[2022-11-10] MEDS ORDERED: MORPHINE 2 MG/ML SYR ONE (01:30)
[2022-11-10] MEDS ORDERED: NA CHLORIDE 0.9% 1,000 ML ONE (01:30)
[2022-11-10] MEDS ORDERED: CLINDAMYCIN 900MG/D5W 900 MG/50 ML IVPB IV ONE (01:35)
--- NOTE | 2022-11-10 01:49 | EDPHYS ---
Physician Documentation [facility] Name: Avery Alvarenga Age: 21 yrs Sex: Male : 2000 Arrival Date: 11/09/2022 Time: 23:40 Bed 12 Private MD: ED Physician Jaun Acuna HPI: 11/10 00:14 This 21 yrs old Male presents to ER via Unassigned with complaints of Jaw Pain, Ear cp Pain. Historical: - Allergies: 00:39 No Known Allergies; kl - Home Meds: 00:39 vivance [Active]; kl - PMHx: 00:39 ADD; kl - PSHx: 00:39 None; kl - Immunization history:: Adult Immunizations up to date. - Social history:: Smoking status: Patient denies any tobacco usage or history of. Vital Signs: 00:37 BP 128 / 82; Pulse 89; Resp 16; Temp 98.4; Pulse Ox 99% ; Weight 91.17 kg; Height 6 ft. kl 1 in. ; Pain 7/10; 00:37 Body Mass Index 26.52 (91.17 kg, 185.42 cm) kl 00:37 Pain Scale: Adult kl Procedures: 01:44 I \T\ D: Incision and drainage was performed for an abscess of the right upper jaw cp Anesthetized with dental block using 5 cc mixture 1% lidocaine and 0.5% marcaine. Incised with #11 blade. Drained small amount purulent fluid. bloody fluid. the patient tolerated the procedure well. MDM: 00:14 Patient medically screened. cp 11/10 00:16 Order name: I\T\D Setup cp 11/10 00:39 Order name: IV; Complete Time: 01:06 cp 11/10 00:39 Order name: CBC with Diff; Complete Time: 01:25 cp 11/10 00:39 Order name: BMP; Complete Time: 01:25 cp Administered Medications: 01:30 Drug: NS 0.9% IV 1000 ml Route: IV; Rate: 1 bolus; Site: right antecubital; kl 01:44 Drug: morphine IVP or IV 2 mg Route: IVP; Infused Over: 4 mins; Site: right antecubital;kl 01:48 Drug: Clindamycin IVPB 900 mg Route: IVPB; Infused Over: 30 mins; Site: right kl antecubital; Disposition Summary: 11/10/22 01:48 Discharge Ordered Location: Home cp Problem: new cp Symptoms: have improved cp Condition: Stable cp Diagnosis - Disorder of teeth and supporting structures, unspecified cp Followup: cp - With: Chris Bermudez DDS - When: 2 - 3 days - Reason: Recheck today's complaints Discharge Instructions: - Discharge Summary Sheet cp - Dental Abscess cp - Dental Pain cp Forms: - Medication Reconciliation Form cp - Thank You Letter cp - Antibiotic Education cp - Prescription Opioid Use cp Prescriptions: - Clindamycin HCl 300 mg Oral Capsule - take 1 capsule by ORAL route every 6 hours for 10 days; 40 capsule; Refills: 0, cp Product Selection Permitted - Ibuprofen 800 mg Oral Tablet - take 1 tablet by ORAL route every 8 hours As needed take with food; 30 tablet; cp Refills: 0, Product Selection Permitted - Tramadol 50 mg Oral Tablet - take 1 tablet by ORAL route every 8 hours as needed; 12 tablet; Refills: 0, cp Product Selection Permitted Signatures: Dispatcher [employer] Leatha Meng RN RN kl Page, Corey, PA PA cp Sims, Marcus, DO DO ms3
--- NOTE | 2022-11-10 01:49 | ER ---
Nurse's Notes [facility] Name: Avery Alvarenga Age: 21 yrs Sex: Male : 2000 Arrival Date: 11/09/2022 Time: 23:40 Bed 12 Private MD: Diagnosis: Disorder of teeth and supporting structures, unspecified Presentation: 11/10 00:37 Chief complaint: Patient states: deantal pain increasing over last 2 days. Coronavirus kl screen: Vaccine status: Patient reports receiving the 2nd dose of the covid vaccine. Ebola Screen: Patient negative for fever greater than or equal to 101.5 degrees Fahrenheit, and additional compatible Ebola Virus Disease symptoms. Initial Sepsis Screen: Does the patient meet any 2 criteria? No. Patient's initial sepsis screen is negative. Does the patient have a suspected source of infection? No. Patient's initial sepsis screen is negative. Risk Assessment: Do you want to hurt yourself or someone else? Patient reports no desire to harm self or others. 00:37 Method Of Arrival: Ambulatory 00:37 Acuity: MANSOOR 4 kl Triage Assessment: 00:39 General: Appears uncomfortable, well groomed, well developed, Behavior is. Pain: Complains of pain in Jaw Pain currently is 7 out of 10 on a pain scale. Historical: - Allergies: 00:39 No Known Allergies; kl - Home Meds: 00:39 vivance [Active]; kl - PMHx: 00:39 ADD; kl - PSHx: 00:39 None; kl - Immunization history:: Adult Immunizations up to date. - Social history:: Smoking status: Patient denies any tobacco usage or history of. Vital Signs: 00:37 BP 128 / 82; Pulse 89; Resp 16; Temp 98.4; Pulse Ox 99% ; Weight 91.17 kg; Height 6 ft. kl 1 in. ; Pain 7/10; 00:37 Body Mass Index 26.52 (91.17 kg, 185.42 cm) 00:37 Pain Scale: Adult ED Course: 11/09 23:40 Patient arrived in ED. [id number] 23:48 Akash Gruber PA is PHCP. cp 23:48 Jaun Acuna DO is Attending Physician. cp 11/10 00:39 Triage completed. kl 01:06 BMP Sent. ha1 01:06 CBC with Diff Sent. ha1 01:47 Chris Bermudez DDS is Referral Physician. cp Administered Medications: 01:30 Drug: NS 0.9% IV 1000 ml Route: IV; Rate: 1 bolus; Site: right antecubital; kl 01:44 Drug: morphine IVP or IV 2 mg Route: IVP; Infused Over: 4 mins; Site: right antecubital;kl 01:48 Drug: Clindamycin IVPB 900 mg Route: IVPB; Infused Over: 30 mins; Site: right kl antecubital; Outcome: 01:48 Discharge ordered by . cp Signatures: Leatha Pires RN RN Akash Rabago PA PA cp Jeffries, Jennifer [id number] Chitra Longo, RN RN ha1
[2022-11-10] MEDS ORDERED: HYDROCODONE/APAP 7.5/325 MG TAB ONE (01:55)
[2022-11-10] MEDS ORDERED: IBUPROFEN 400 MG TAB ONE (01:55)
[2022-11-10 03:44] VITALS: BP 107/76; O2SAT 100
== END 2022-11-10 02:55 | disposition home or self-care (01) ==
LOC: ER 23:37
PROC: 0N9R0ZZ Drainage of Maxilla, Open Approach (ICD-10-PCS; principal; 2022-11-10)
DX: K08.89 Other specified disorders of teeth and supporting structures (principal); R68.84 Jaw pain; H92.09 Otalgia, unspecified ear; F98.8 Other specified behavioral and emotional disorders with onset usually occurring in childhood and adolescence
CPT/HCPCS: 96365; 85025; 80048; 36415; 96375; 99284; 10060; J2001 ×2; J2270; J7030